=== PATIENT | male | born 1950 | race Caucasian/White ===

== ENCOUNTER 2022-07-06 03:44 | Observation (INO) | payer MEDICARE ==
[~2022-07-06] VITALS: Ht 165.1 cm; Wt 100.0 kg
--- NOTE | 2022-07-06 06:39 | NUR ---
0630 PT ARRIVED TO ROOM IN DISCOMFORT. PT REPORTS TO ADDITION OF HIS ABD HURTING RIGHT SIDE OF NECK HURTS. DR GRIMM ASSESSED PT AND IS PUTTING IN ORDERS.
[2022-07-06 12:12] LABS: BASOPHILS ABSOLUTE AUTO 0.02 K/mm3 (0.00-0.23); BASOPHILS PERCENT AUTO 0 % (0-2); EOSINOPHILS PERCENT AUTO 0 % (0-6); Hematocrit 45.3 % (37.0-53.0); Hemoglobin 15.1 g/dL (13.5-17.5); IMMATURE GRAN ABSOLUTE AUTO 0.06 K/mm3 (0.00-0.10); IMMATURE GRAN PERCENT AUTO 0 % (0-1); LYMPHOCYTES ABSOLUTE AUTO 0.74 K/mm3 (0.84-5.20); LYMPHOCYTES PERCENT AUTO 5 % (21-46); MONOCYTES ABSOLUTE AUTO 1.68 K/mm3 (0.16-1.47); MONOCYTES PERCENT AUTO 11 % (4-13); Mean Corpuscular HGB 29.1 pg (26.0-34.0); Mean Corpuscular HGB Conc 33.3 g/dL (31.5-36.5); Mean Corpuscular Volume 87 fL (80-100); Mean Platelet Volume 10.2 fL (9.1-12.4); NEUTROPHILS ABSOLUTE AUTO 12.23 K/mm3 (1.96-9.15); NEUTROPHILS PERCENT AUTO 83 % (41-73); Platelet Count 202 K/mm3 (150-400); RDW Coefficient Variation 12.7 % (11.7-14.2); RDW Standard Deviation 40.6 fL (35.1-46.3); Red Blood Cell Count 5.19 M/mm3 (4.30-5.90); White Blood Cell Count 14.73 K/mm3 (4.00-11.30)
[2022-07-06 14:22] LABS: Bun/Creatinine Ratio 24.2 (12.0-20.0); Calcium, Blood 8.9 mg/dL (8.5-10.1); Creatinine, Blood 0.87 mg/dL (0.60-1.20); Potassium, Blood 4.2 mmol/L (3.5-5.5)
--- NOTE | 2022-07-06 15:46 | NUR ---
PT TO DAY SURGERY VIA [facility], C/O 06/20 PAIN FROM ABDOMEN AND BILAT NECK/CERVIBAL PAIN. PT RECEIVED PAIN MEDICATION IMMEDIATELY PRIOR TO TRANSFER BUT STS NO IMPROVEMENT. PT O2 SATURATION RANGING FROM 86-91% ON ROOM AIR. PT DENIES FEELING SOB OR ANY DIFFICULTY BREATHING, DENIES TIGHTNESS IN CHEST OR OTHER SYMPTOMS. 2L/MIN VIA NASAL CANNULA PLACED, O2 IMPROVED TO 92-94%.
--- NOTE | 2022-07-06 16:48 | NUR ---
07/06/22 1648 Antonia Guevara PT. IS ON SCHEDULED ABX
--- NOTE | 2022-07-06 18:46 | NUR ---
POST OP: REPORT RECEIVED FROM SUPERVISOR [employer]ORAT[facility] KIM. PT TO UNIT AT 1830. PT IS ALERT, A LITTLE CONFUSED ABOUT TIME, PLACE, SITUATION. EASILY REORIENTED. SURGICAL SITES WNL
--- NOTE | 2022-07-06 19:06 | NUR ---
POST OP: SOME TACHYCARDIA, PT DOES REPORT ABD AND NECK PAIN. OTHERWISE VSS. PLAN TO MEDICATED PER EMAR. PT ABLE TO AMBULATE TO BATHROOM AND VOID. FOLLOWING COMMANDS. REPORT PASSED TO APRIL PHILIPPE RN.
--- NOTE | 2022-07-06 23:22 | NUR ---
MEDIPORT THE PATIENTS MEDIPORT WAS ACCESSED ON DAY SHIFT. IT IS DRESSED WITH TEGADERM, AREA IS C/D/I. INFUSING NS AT 125/HR. NO REDDNESS OR DRAINAGE NOTED.
--- NOTE | 2022-07-07 04:34 | NUR ---
POD1 FOR A LAP APPY. X3 LAP SITES REMAIN C/D/I. MINIMAL SS DRAINAGE NOTED ON STERI STRIPS. THE PATIENTS ABD IS MODERATELY DISTENDED AND FIRM. THE PT DENIES PASSING FLATTUS BUT IS TOLLERATING MINIMAL PO INTAKE OF PUDDING AND WATER. VSS, TACHYCARDIA NOTED AT THE BEGINNIG OF SHIFT. THIS RESOLVED WHEN THE PATIENTS PAIN WAS TX. PAIN TREATED WITH DILAUDID AND OXY. THE PATIENT HAS SLEPT ON AND OFF TONIGHT AND HAS VOIDED TWICE. HAS AMBULATED WITH A SBA. T/O THE NIGHT THE PT HAS REPORTED INCREASING ANXIETY AND FEELING "FUZZY" SINCE AWAKENING FROM ANESTHESIA. FLUIDS RUNNING AND PT REORIENTED PRN. THE PATIENT IS CURRENTLY SLEEPING, IN NO DISTRESS. CALL LIGHT IN REACH, BED ALARM ON
--- NOTE | 2022-07-07 05:36 | NUR ---
LABS PT DECLINING A LAB DRAW THIS AM DUE TO ANXIETY OVER HIS MEDIPORT.
[2022-07-07 08:28] LABS: BASOPHILS ABSOLUTE AUTO 0.02 K/mm3 (0.00-0.23); BASOPHILS PERCENT AUTO 0 % (0-2); EOSINOPHILS ABSOLUTE AUTO 0.02 K/mm3 (0.00-0.68); EOSINOPHILS PERCENT AUTO 0 % (0-6); Hematocrit 39.1 % (37.0-53.0); Hemoglobin 13.2 g/dL (13.5-17.5); IMMATURE GRAN ABSOLUTE AUTO 0.04 K/mm3 (0.00-0.10); IMMATURE GRAN PERCENT AUTO 0 % (0-1); LYMPHOCYTES ABSOLUTE AUTO 1.35 K/mm3 (0.84-5.20); LYMPHOCYTES PERCENT AUTO 13 % (21-46); MONOCYTES ABSOLUTE AUTO 1.23 K/mm3 (0.16-1.47); MONOCYTES PERCENT AUTO 12 % (4-13); Mean Corpuscular HGB 29.8 pg (26.0-34.0); Mean Corpuscular HGB Conc 33.8 g/dL (31.5-36.5); Mean Corpuscular Volume 88 fL (80-100); Mean Platelet Volume 10.2 fL (9.1-12.4); NEUTROPHILS ABSOLUTE AUTO 7.94 K/mm3 (1.96-9.15); NEUTROPHILS PERCENT AUTO 75 % (41-73); Platelet Count 166 K/mm3 (150-400); RDW Coefficient Variation 13.3 % (11.7-14.2); RDW Standard Deviation 43.7 fL (35.1-46.3); Red Blood Cell Count 4.43 M/mm3 (4.30-5.90)
[2022-07-07 08:48] LABS: Albumin, Blood 3.3 g/dL (3.4-5.0); Albumin/Globulin Ratio 0.9 (0.8-1.8); Bilirubin, Total 0.8 mg/dL (0.1-1.0); Bun/Creatinine Ratio 26.1 (12.0-20.0); Calcium, Blood 8.2 mg/dL (8.5-10.1); Creatinine, Blood 0.77 mg/dL (0.60-1.20); Globulin, Blood 3.5 g/dL (2.2-4.0); Potassium, Blood 3.6 mmol/L (3.5-5.5); Total Protein, Blood 6.8 g/dL (6.4-8.2)
--- NOTE | 2022-07-07 17:37 | NUR ---
SHIFT SUMMARY POD 1 LAP APPY PT [id number], BUT IMPULSIVE. STRONG ON HIS FEET AND MANAGES LINES WELL BUT DOES NOT USE HIS CALL LIGHT. PAIN MANAGED PER EMAR. PT REPORTS PASSING FLATUS AND PAIN IMPROVING DURING SHIFT. TOLERATING PO WELL. DENIES NAUSEA. PLAN FOR DISCHARGE TOMORROW.
--- NOTE | 2022-07-08 02:09 | NUR ---
MEDIPORT PORT HAS REMAINED HEPARIN LOCKED T/O THE SHIFT. NEW TEGADERM DRESSING APPLIED, STERILE TECHNIQUE MAINTAINED. REINFORCED WITH TAPE DUE TO PTS CHEST HAIR. PLAN FOR PT TO HAVE A HEPARIN FLUSH BEFORE D/C.
--- NOTE | 2022-07-08 04:12 | NUR ---
POD2 FOR A LAP APPY. VSS. LAP SITES ARE C/D/I. SOME REDDNESS NOTED AROUND THE PATIENTS INCISIONS. THE PATIENT REPORTS PASSING SOME FLATTUS AND IS TOLLERATING PO INTAKE WELL. NO N/V. VOIDING INDEPENDENTLY. MEDICATED FOR PAIN WITH OXY T/O THE SHIFT. THE PT SLEPT ON AND OFF T/O THE NIGHT. THE PATIENT EXPRESSED T/O THE NIGHT THAT HE IS EXPERIENCING ANXIETY OVER HIS HOSPITALIZATION AND CONDITION, I EDUCATED THE PATIENT ON POST OP CARE AND OFFERED THERAPEUDIC COMMUNICATION. THE PATIENT WORE THE NC WITH 2L O2 T/O THE NIGHT FOR COMFORT. PLAN FOR PT TO D/C HOME TODAY IF PRESCRIPTIONS CAN BE PICKED UP FROM HIS PHARMACY. NEED TO HEPERIN LOCK THE PATIENTS MEDIPORT BEFORE D/C, WILL INFORM DAYSHIFT. THE PATIENT IS CURRENTLY SLEEPING, IN NO DISTRESS. CALL LIGHT IN REACH.
[2022-07-08] MEDS ORDERED: AMOCLA875 PO (10:51)
[2022-07-08] MEDS ORDERED: Celexa20 MG PO (10:51)
[2022-07-08] MEDS ORDERED: LOSA25 PO (10:52)
[2022-07-08] MEDS ORDERED: ROXICODONE5 MG PO (10:53)
--- NOTE | 2022-07-08 15:42 | NUR ---
DISCHARGE NOTE DISCUSSED DISCHARGE INFORMATION WITH THE PATIENT INCLUDING HOME CARE, FOLLOW UP APPOINTMENTS, AND MEDICATIONS. PT HAD NO QUESTIONS AT TIME OF DISCHARGE, NO IV ACCESS IN PLACE. PT ESCORTED OUT TO PRIVATE AUT[employer] TO GO HOME.
== END 2022-07-08 15:00 | disposition home or self-care (01) ==
LOC: SURS 03:44
PROVIDERS: Anesthesiology; Student in an Organized Health Care Education/Training Program; ADMIT Internal Medicine
DX: K35.891 Other acute appendicitis without perforation, with gangrene (principal); G47.33 Obstructive sleep apnea (adult) (pediatric); I10 Essential (primary) hypertension; M19.90 Unspecified osteoarthritis, unspecified site; J44.9 Chronic obstructive pulmonary disease, unspecified; G89.29 Other chronic pain; M54.9 Dorsalgia, unspecified; Z66 Do not resuscitate; Z98.1 Arthrodesis status; Z87.891 Personal history of nicotine dependence; Z88.6 Allergy status to analgesic agent; Z88.8 Allergy status to other drugs, medicaments and biological substances; Z91.011 Allergy to milk products; Z86.19 Personal history of other infectious and parasitic diseases
CPT/HCPCS: 80048; 80053; 82947; 83036; 83605; 83880; 85025; 88304; 93005; 93010; 94640; 94664; 94760; 96365; 96366; 96375; 96376; A9270; G0378; J0295; J1100; J1170; J1642; J2250; J2370; J2405; J2704; J2795; J3010; J7030; J7050; J7120